=== PATIENT | male | born 1955 | race Caucasian/White ===

== ENCOUNTER → 2016-08-15 | Outpatient (CLI) | payer OTHER ==
[~2016-08-15] MED LIST: AUGMENTIN1 TA2 PO; LISINOPRIL20 MG PO; LOPRESSOR 25MG.25 MG PO
--- NOTE | 2016-08-15 11:01 | RADIOLOGY REPORT PS360 ---
[id number] VIEWS HISTORY: RT SHOULDER PAIN COMPARISON: None FINDINGS: Minimal downsloping of the acromion with subacromial stenosis. No fracture or dislocation. No other significant anomalies. IMPRESSION: Subacromial stenosis which may result in impingement symptomatology upon the rotator cuff may be better evaluated with MRI if clinically warranted
== END ==
LOC: RAD 09:26
DX: M25.511 Pain in right shoulder (principal)